=== PATIENT | female | born 1985 | race Caucasian/White ===

== ENCOUNTER 2019-04-22 21:30 | Emergency (ER) | payer SELFPAY ==
[~2019-04-22] VITALS: Ht 172.7 cm; Wt 87.3 kg
[~2019-04-22 21:30] MED LIST: ACETAMINOPHEN500 M1 PO; EFFEXOR XR37.5 MG PO; IBUPROFEN200 M1 PO; IBUPROFEN800 MG PO; LEVAQUIN750 MG PO; LEVOFLOXACIN500 MG PO; METHYLPREDNISOLO4 M1 PO; NAPROXEN375 MG PO; NORCO 5-325 TA1 EACH PO; NORCO 7.5-3251 EACH PO; ONDANSETRON ODT8 MG PO; PERCOCET 5-3251 EACH PO; PROTONIX40 MG PO; TRAMADOL HCL50 MG PO; VENLAFAXINE HC150 M1 PO; VIBRAMYCIN100 MG PO; ZOFRAN ODT4 MG PO
[2019-04-23] MEDS ORDERED: FLAGYL500 MG PO (00:04)
[2019-04-23] MEDS ORDERED: NORCO 5-325 TA1 EACH PO (00:04)
[2019-04-23] MEDS ORDERED: CIPRO500 MG PO (00:04)
== END 2019-04-23 00:30 | disposition home or self-care (01) ==
LOC: ED 21:30
DX: K57.32 Diverticulitis of large intestine without perforation or abscess without bleeding (principal); F17.200 Nicotine dependence, unspecified, uncomplicated; Z87.442 Personal history of urinary calculi; Z88.0 Allergy status to penicillin; Z88.1 Allergy status to other antibiotic agents; Z88.2 Allergy status to sulfonamides; Z88.8 Allergy status to other drugs, medicaments and biological substances
CPT/HCPCS: 74177; 80053; 81001; 83690; 84703; 85025; 99284-25; J1170; J2405; J7030

== ENCOUNTER 2020-10-03 10:49 | Emergency (ER) | payer SELFPAY ==
[~2020-10-03] VITALS: Ht 172.7 cm; Wt 85.8 kg
[~2020-10-03 10:49] MED LIST changes: +CIPRO500 MG PO; +FLAGYL500 MG PO
--- OUTSIDE RECORDS SUMMARY | 2020-10-03 10:52 | XMS ---
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 Care History Medical/Surgical 05/18/2019 [facility] \T\middot;\T\nbsp; PATIENT IS A [employer]. \T\middot;\T\nbsp; PLEASE REFER PATIENT TO [facility] FOR NON EMERGENT MEDICAL NEEDS. \T\middot;\ T\nbsp; [facility] CAN SEE PATIENTS SAME DAY FOR APTS IF PATIENT CALLS FIRST THING IN THE MORNING. E.D. VISIT COUNT ([address] [facility] TOTAL 1 NOTE: Visits indicate total known visits. ED/UCC VISIT TRACKING (12 MO.) 10/03/2020 10:49 [facility] OR TYPE: Emergency COMPLAINT: - ABD PAIN, ABNORMAL LAB RESULTS INPATIENT VISIT TRACKING (12 MO.) No inpatient visits to display in this time frame [email or web address]
[2020-10-03] MEDS ORDERED: TYLENOL EXTRA500 MG PO (11:18)
[2020-10-03] MEDS ORDERED: FLAGYL500 MG PO (11:19)
[2020-10-03] MEDS ORDERED: CIPRO500 MG PO (11:19)
[2020-10-03] MEDS ORDERED: ZOFRAN4 MG PO (13:57)
== END 2020-10-03 14:37 | disposition home or self-care (01) ==
LOC: ED 10:49
DX: R10.13 Epigastric pain (principal); R74.8 Abnormal levels of other serum enzymes; F17.200 Nicotine dependence, unspecified, uncomplicated; Z88.0 Allergy status to penicillin; Z88.1 Allergy status to other antibiotic agents; Z88.2 Allergy status to sulfonamides; Z88.8 Allergy status to other drugs, medicaments and biological substances; Z79.899 Other long term (current) drug therapy
CPT/HCPCS: 74177; 80053; 81001; 83690; 84703; 85025; 96375; 96376; 99284-25; J1885; J2405; J7030; Q9967